=== PATIENT | male | born 1990 | race Caucasian/White ===

== ENCOUNTER → 2016-08-28 | Day surgery (SDC) | payer SELFPAY ==
[2016-08-23 11:37] VITALS: BMI 24.9
[~2016-08-28] MED LIST: BACITRACIN 30 GM TUBE TOPICAL OINTMENT ONE; DEXAMETHASONE SOD PHOSPHATE 4 MG/1 ML VIAL ONE; EPINEPHrine/PF 1 MG/1 ML (1:1,000) AMPULE ONE; GLYCOPYRROLATE 0.2 MG/1 ML VIAL ONE; KETOROLAC TROMETHAMINE 30 MG/1 ML VIAL ONE; LACTATED RINGERS SOLUTION 1,000 ML IV SCH; LIDOCAINE 1%/EPI 1:100000 (20 ML MULTI DOSE VIAL) INF ONE; LIDOCAINE HCL 1%, 10 MG/ML (20ML VIAL) ONE; LIDOCAINE HCL/PF 2% SDV 5ML VIAL ONE; MIDAZOLAM HCL 2 MG/2 ML SINGLE DOSE VIAL ONE; NEOSTIGMINE METHYLSULFATE 0.5 MG/ML - 10 ML MDV ONE; ONDANSETRON 4 MG/2 ML VIAL IVPB PRN; ONDANSETRON 4 MG/2 ML VIAL IVPUSH PRN; ONDANSETRON 4 MG/2 ML VIAL ONE; PROMETHAZINE HCL 25 MG/1 ML VIAL IVPUSH PRN; PROPOFOL 20 ML ONE; ROCURONIUM BROMIDE 50 MG/5 ML VIAL ONE; ceFAZolin SODIUM 1 GM VIAL ONE; oxyCODONE HCL 5 MG TABLET PO PRN
[2016-08-28 18:41] VITALS: TEMP 98.5
[2016-08-28 19:29] VITALS: BP 124/78; PULSE 93
--- NOTE | 2016-08-29 08:17 | OP ---
DATE OF OPERATION: 08/28/2016 TITLE OF PROCEDURE: Bilateral correction of gynecomastia by direct excision of glandular material and separate abdominoplasty. ATTENDING SURGEON: Anup Marc MD ANESTHESIA: General endotracheal anesthesia. Patient received local anesthetic preoperatively to the bilateral breast area totaling 5 mL of 1% lidocaine with 1:100,000 epinephrine on each side. Additionally, patient received tumescent mixture to the breast total of 150 mL of infiltrate used to the breast tissues. The mixture is 1 L of normal saline combined with 20 mL of 1% lidocaine plain and 1 ampule of 1:100,000 epinephrine. DESCRIPTION OF PROCEDURE: The patient was seen in the holding area first. We discussed the operation. Patient expresses his desire to keep the scar as low as possible and is willing to accept a small vertical component to the scar. In order to achieve this, it was explained the alternative would be a higher scar on the abdomen, and he would prefer a small vertical component. Patient was awake, aware of all incisions and resulting scars. Bilateral breasts were marked, as well, for infraareolar incisions. He was brought to the operating room and placed in a supine position. He was given 1 g of Ancef preoperatively. Patient was given sequential compression devices on his legs. Position was carefully padded and checked by surgical and anesthesia teams. After anesthesia was given, he was prepped and draped in standard surgical fashion. A time-out was called. Patient, procedure, incision sites were verified. The injection of local anesthetic into the breast had been given prior to prepping and draping. At this point, an incision was made on the right side, infraareolar incision, measuring roughly 1/3 of the circumference of the areola, through which undermining of the areolar skin and complex was performed widely, allowing visualization of the hypertrophic glandular material in a retroareolar space. This was directly excised under direct visualization. Hemostasis was achieved. A mirror image procedure was then performed on the contralateral left side. At this point, the tumescent mixture was then infiltrated using a standard infiltration needle system. A total of 150 mL was infiltrated, split between the 2 breast mccartney. This was working. Attention was directed towards the abdomen. The incision was made along the crease, which was marked preoperatively. Dissection was carried down to the level of the abdominal wall fascia where the abdominoplasty flap was then elevated along the abdominoplasty fascia superiorly until the umbilicus was reached. At this point, the umbilicus was then circumcised and developed on a fibrofatty stalk to its base. Dissection then continued to the costal margins bilaterally and the xiphoid process in the midline. Hemostasis was meticulously achieved. The wounds were copiously irrigated with normal saline. The patient was brought to a seated position. He was also first brought to an upright position, where the nipple areolas were able to be assessed. Please note that roughly 20 minutes into this abdominoplasty procedure, attention was then redirected to the breasts after tumescent wetting solution had adequate time to work. At this point, wider undermining of the skin was then performed to allow for the skin to redrape. Additionally, undermining was performed using a combination of facelift scissors and a liposuction cannula, which was not hooked up to suction, and no liposuction was performed. At this point, the nipples were assessed, and it was determined that the resected tissue required a suturing to prevent inversion defect, and a 3-0 Vicryl suture was used bilaterally to repair the defect left from the excised gland bilaterally. Chest contour was symmetric and acceptable bilaterally. However, the areola on the right was still protuberant. It was slightly scored with sharp scissors. A small rim of glandular tissue as well as skin was excised to allow for better stretch of the residual areola. The areolar was then closed on the right. Two tacking sutures from the base of the deep surface of the areola to the residual gland were placed using 3-0 Vicryl suture. This corrected the protuberance. The skin was closed first with a series of interrupted buried deep dermal 4-0 Monocryl suture followed by running subcuticular 4-0 Monocryl suture. A mirror-image procedure was performed on the left side. However, tacking sutures from the gland to the areolar were not required as the left nipple areola was not as protuberant. Once this was completed, nipples were pink and viable bilaterally. Attention was then redirected towards the abdomen. At this point, the patient in a seated upright position, was able to be noticed to have good symmetry bilaterally. The flap was transposed, and the excess skin and fat was removed. The umbilicus was then marked on the skin panel. An oval incision was made on the abdominoplasty flap where the umbilicus was then translocated and secured with a series of interrupted buried deep dermal 3-0 Monocryl sutures followed by a series of interrupted 5-0 nylon sutures. Size 10 flat SOPHIE drains were brought out through lateral extents of the incisions, secured with 2-0 silk drain sutures. The abdominoplasty flap was then closed with a series of interrupted buried superficial fascial system, Scarpas layer, 2-0 Vicryl suture followed by a series of interrupted buried deep dermal 3-0 Monocryl suture followed by a running subcuticular 3-0 Monocryl suture. A small vertical component of the incision was left in the suprapubic area. This was from the original defect from the umbilicus. It was closed with a series of interrupted buried superficial fascial system 2-0 Vicryl suture followed by a series of interrupted buried deep dermal 3-0 Monocryl suture followed by a running subcuticular 3-0 Monocryl suture. All tissues were pink and viable. Dressings were applied with Bacitracin, Xeroform, Telfa, and ABD to the umbilicus and bilateral nipple areolas. The abdominoplasty scar was dressed with 0.5-inch Steri-Strips full length. ABD gauze, abdominal binder, and compressive chest wrap were applied. Patient was awoken from anesthesia without complication, transferred to a flexed bed having tolerated the procedure well. Drains were placed to bulb suction. Emir [id number]
--- NOTE | 2016-08-30 16:18 | PATH ---
Surgical Pathology Report Patient Name: REBECA FLORES Med. Rec. #: [id number] /Age/Gender: 1990 (Age: 25) / M Account: [id number] Location: [facility] Taken: 08/28/2016 Received: 08/28/2016 Reported: 08/30/2016 Physicians: Anup Marc Specimen(s) Received A: RIGHT BREAST TISSUE B: LEFT BREAST TISSUE C: ABDOMINAL SKIN AND FAT Clinical History Cosmetic Final Diagnosis A. RIGHT BREAST, MAMMOPLASTY: BENIGN BREAST TISSUE WITH FIBROCYSTIC CHANGES INCLUDING USUAL DUCTAL HYPERPLASIA (UDH), STROMAL FIBROSIS, AND DUCTAL DILATATION. B. LEFT BREAST, MAMMOPLASTY: BENIGN BREAST TISSUE WITH FIBROCYSTIC CHANGES INCLUDING USUAL DUCTAL HYPERPLASIA (UDH), STROMAL FIBROSIS, AND DUCTAL DILATATION. C. SKIN AND SOFT TISSUE, ABDOMEN, ABDOMINOPLASTY: UNREMARKABLE SKIN AND SUBCUTANEOUS ADIPOSE TISSUE. Electronically Signed Layo Spangler M.D. Gross Description A. Received in formalin, labeled "right breast tissue," is a 6 g, 3.5 x 3.0 x 1.0 cm irregular, unoriented portion of fibroadipose tissue. Sectioning reveals foci of dense, white fibrous tissue. No definitive masses are identified. Surveillance Specialist sections are submitted in 2 cassettes. B. Received in formalin, labeled "left breast tissue," is a 12 g, 4.0 x 3.8 x 1.7 cm irregular, unoriented portion of fibroadipose tissue. Sectioning reveals foci of dense, white fibrous tissue. No definitive masses are identified. Surveillance Specialist sections are submitted in 2 cassettes. C. Received in formalin, labeled "abdominal skin and fat," is a 643 g, 24.0 x 11.5 x 4.0 cm aggregate of 2 unoriented, triangular portions of skin with underlying soft tissue. Sectioning reveals homogeneous yellow, lobulated adipose tissue. The epidermal surfaces are unremarkable. No sections are submitted, gross only. 08/29/2016 [facility]08/29/2016
== END | disposition home or self-care (01) ==
LOC: FASU 09:35
PROVIDERS: ATTEND Plastic Surgery
PROC: 0HBV0ZZ Excision of Bilateral Breast, Open Approach (ICD-10-PCS; principal; 2016-08-28 14:19)
PROC: 0J080ZZ Alteration of Abdomen Subcutaneous Tissue and Fascia, Open Approach (ICD-10-PCS; 2016-08-28 14:19)
DX: Z41.1 Encounter for cosmetic surgery (principal); N62 Hypertrophy of breast
CPT/HCPCS: 88300-TC; 88302-TC; 94760

== ENCOUNTER → 2016-11-09 | Day surgery (SDC) | payer SELFPAY ==
[2016-11-01 11:36] VITALS: BMI 24.3
[~2016-11-09] MED LIST changes: -BACITRACIN 30 GM TUBE TOPICAL OINTMENT ONE; +DESFLURANE GAS 240 ML BOTTLE IH ONE; -DEXAMETHASONE SOD PHOSPHATE 4 MG/1 ML VIAL ONE; -EPINEPHrine/PF 1 MG/1 ML (1:1,000) AMPULE ONE; -GLYCOPYRROLATE 0.2 MG/1 ML VIAL ONE; -KETOROLAC TROMETHAMINE 30 MG/1 ML VIAL ONE; -LIDOCAINE 1%/EPI 1:100000 (20 ML MULTI DOSE VIAL) INF ONE; -LIDOCAINE HCL 1%, 10 MG/ML (20ML VIAL) ONE; -LIDOCAINE HCL/PF 2% SDV 5ML VIAL ONE; -MIDAZOLAM HCL 2 MG/2 ML SINGLE DOSE VIAL ONE; -NEOSTIGMINE METHYLSULFATE 0.5 MG/ML - 10 ML MDV ONE; -ONDANSETRON 4 MG/2 ML VIAL ONE; -PROPOFOL 20 ML ONE; -ROCURONIUM BROMIDE 50 MG/5 ML VIAL ONE; -ceFAZolin SODIUM 1 GM VIAL ONE
--- NOTE | 2016-11-09 14:21 | OP ---
DATE OF OPERATION: 11/09/2016 TITLE OF PROCEDURE: Liposuction to lower abdomen and bilateral flanks with fat grafting to bilateral chest, nipple areolar revision on right side. PREOPERATIVE DIAGNOSIS: Deformity from overresection on previous gynecomastia surgery and abdominal lipodystrophy. Patient is marked in the holding area awake and aware of incisions, resulting scars. A discussion is had specifically with regard to potential nipple distortion on the right which he is willing to accept in order to alleviate the current nipple projection. He is brought to the operating room. Ancef 1 g was given preoperatively. Sequential compression stockings are applied. He is prepped and draped in standard surgical fashion. Position is carefully checked by surgical and anesthesia teams. Timeout is called. Patient, procedure site, side verified. Patient is then incised at the lateral dog ears of his previous abdominoplasty incision where the small dog ears are able to be excised and corrected. Through this, wetting solution is infiltrated with 600 mL on each side of the abdomen and flank. The wetting solution in this case is 1 L of normal saline with 1 ampule of 1:1000 epinephrine, 20 mL of 1% lidocaine plain. Full 15 minutes is waited for anesthetic and hemostatic effect of the wetting solution. After this, liposuction is then performed using a Body-Jet system with concurrent infiltration and aspiration. The total lipoaspirate is 1400 mL, 700 mL from each side of which the fat is processed by gravity filtration and prepared for reinjection into the chest. End point for liposuction is the appearance of blood in the lipoaspirate and smooth even contour by feel and visualization. Vascularity of all the tissues appears good. Liposuction is performed with a combination of 4.5- and 3.5-mm cannulas. While the fat is being processed, the right nipple areola is marked for revision. The preexisting scar of the previous gynecomastia surgery is marked. Infiltration with1% lidocaine and 1:100,000 epinephrine is then performed. A total of 5 mL is used in the surrounding tissues. At this point, the incision is made along the existing scar and the nipple areola is then elevated from the deep scar and glandular tissue. A judicious amount of subcutaneous tissue is maintained on the nipple areola. However, a residual retained element of scar and gland retroareolar is able to be identified and is excised. The skin is slightly undermined for 1.5 cm surrounding this area to allow for mobilization of fat which could be repaired to itself to eliminate any contour deformity. This is performed with 2 separate buried 3-0 Vicryl suture. At this point, the fat is prepared for grafting. A 2-mm cannula is used with 10-mL syringe and a Walls microdroplet technique is used to the previously marked areas. This is performed bilaterally. On the right side, the infiltration is performed through the existing incision for the areolar revision. On the left side, a 2-mm stab wound incision is made in the existing infraareolar scar. Total grafts were 52 mL of fat on the right and 28 mL of fat on the left. End point is good symmetry by feel and visualization. The tissues are massaged for evenness. All liposuction holes, dog ears are closed with a series of interrupted buried deep dermal 3-0 Monocryl suture followed by an interrupted 5-0 nylon suture. It should be noted that a separate liposuction portal was also made along the periumbilical scar as well as within the abdominoplasty scar. The fat grafting incision on the left breast is closed with a series of interrupted simple 5-0 Prolene suture. The revised nipple areola on the right is first tacked to the deep fatty tissue with 3 separate quilting 4-0 Vicryl suture from the residual retroareolar glandular tissue on the areolar skin down to the residual chest fat until the appropriate contour and absence of projection is identified. The small amount of excess areola on the inferior border roughly 1 mm is excised. The skin is able to be unfurled and a repair is performed with a series of interrupted buried deep dermal 4-0 Monocryl suture followed by a running vertical mattress 5-0 Prolene suture. All incisions are dressed with bacitracin, Xeroform, ABD, gauze, and abdominal binder is placed on the abdomen. A noncompressive Ray wrap is placed on the chest. Patient is awoken from anesthesia having tolerated procedure well. Transferred to recovery. Emir [id number]
[2016-11-09 15:48] VITALS: TEMP 98.2
[2016-11-09 15:56] VITALS: BP 130/84; PULSE 75
--- NOTE | 2016-11-10 16:06 | PATH ---
Surgical Pathology Report Patient Name: REBECA FLORES Med. Rec. #: [id number] /Age/Gender: 1990 (Age: 26) / M Account: [id number] Location: [facility] Taken: 11/09/2016 Received: 11/09/2016 Reported: 11/10/2016 Physicians: Anup Marc Specimen(s) Received RIGHT AREOLAR SKIN Clinical History Cosmetic Final Diagnosis AREOLAR SKIN, RIGHT, EXCISION: BENIGN BREAST TISSUE SHOWING STROMAL FIBROSIS AND SUTURE GRANULOMAS. Electronically Signed Mahogany Wheeler M.D. Gross Description Received in formalin labeled "right areolar skin," is a 2.0 x 1.5 x 1.0 cm sousa-yellow, irregular, unoriented portion of fibroadipose tissue. Sectioning reveals dense fibrous tissue. Guide sections are submitted in one cassette. /11/09/2016 [place]/11/09/2016
== END | disposition home or self-care (01) ==
LOC: FASU 08:02
PROVIDERS: ATTEND Plastic Surgery
PROC: 0J063ZZ Alteration of Chest Subcutaneous Tissue and Fascia, Percutaneous Approach (ICD-10-PCS; 2016-11-09)
PROC: 0HRW07Z Replacement of Right Nipple with Autologous Tissue Substitute, Open Approach (ICD-10-PCS; 2016-11-09)
PROC: 0J083ZZ Alteration of Abdomen Subcutaneous Tissue and Fascia, Percutaneous Approach (ICD-10-PCS; principal; 2016-11-09 10:18)
DX: M95.8 Other specified acquired deformities of musculoskeletal system (principal)
CPT/HCPCS: 88304-TC; 94760